=== PATIENT | female | born 1990 | race Caucasian/White ===

== ENCOUNTER 2016-07-05 11:03 | Emergency (ER) | payer MEDICAID, OTHER ==
[2016-07-05] MEDS ORDERED: TETRACAINE HCL 0.5% OPH SOLN 2 ML OS ONE (11:34)
[2016-07-05] MEDS ORDERED: DIPH/PERTUSS(ACELL)/TETANUS VAC/PF 0.5 ML SYR (>=10YO) IM ONE (11:35)
--- NOTE | 2016-07-05 11:36 | ER Document Report ---
ED Medical Screen (RME) - General Chief Complaint: Eye Injury Stated Complaint: FALL/LEFT EYE INJURY Time seen by provider: 11:34 Mode of Arrival: Ambulatory Information source: Patient Notes: 26-year-old female fell in the shower and hit her left eye and orbit on the faucet. Increased pain when she moves her eyeball and increased bruising and swelling to superior inferior orbit. Tetanus is not current. She has abrasion above the left eyebrow. TRAVEL OUTSIDE OF THE [place] IN LAST 30 DAYS: No - Related Data Allergies/Adverse Reactions: No Known Allergies Allergy (Verified 07/05/16 11:18) Home Medications: Current Home Medications No Home Medications 07/05/16 [History] Past Medical History Renal/ Medical History: Denies: Hx Peritoneal Dialysis Skin Medical History: Denies Hx MRSA Past Surgical History: Reports: Hx Breast Surgery - Immunizations Hx Diphtheria, Pertussis, Tetanus Vaccination: Yes Physical Exam - Vital signs Vitals: Temp Pulse Resp BP Pulse Ox 98.5 F 77 16 116/76 100 07/05/16 11:19 07/05/16 11:19 07/05/16 11:19 07/05/16 11:19 07/05/16 11:19 Course - Vital Signs Vital signs: Temp Pulse Resp BP Pulse Ox 98.5 F 77 16 116/76 100 07/05/16 11:19 07/05/16 11:19 07/05/16 11:19 07/05/16 11:19 07/05/16 11:19
--- NOTE | 2016-07-05 13:39 | ER Document Report ---
ED Eye Complaint - General Chief Complaint: Eye Injury Stated Complaint: FALL/LEFT EYE INJURY Time seen by provider: 13:35 Mode of Arrival: Ambulatory TRAVEL OUTSIDE OF THE [place] IN LAST 30 DAYS: No - Related Data Allergies/Adverse Reactions: No Known Allergies Allergy (Verified 07/05/16 11:18) Home Medications: Current Home Medications No Home Medications 07/05/16 [History] Past Medical History - General Information source: Patient - Social History Family History: Reviewed & Not Pertinent Patient has suicidal ideation: No Patient has homicidal ideation: No Renal/ Medical History: Denies: Hx Peritoneal Dialysis Skin Medical History: Denies Hx MRSA Past Surgical History: Reports: Hx Breast Surgery - Immunizations Hx Diphtheria, Pertussis, Tetanus Vaccination: Yes Physical Exam - Vital signs Vitals: Temp Pulse Resp BP Pulse Ox 98.5 F 77 16 116/76 100 07/05/16 11:19 07/05/16 11:19 07/05/16 11:19 07/05/16 11:19 07/05/16 11:19 - HEENT Visual acuity- Right eye: 20/25 Visual acuity- Left eye: 20/25 Visual acuity- Both eyes: 20/25 Corrective lenses worn: No Course - Re-evaluation Re-evalutation: 07/05/16 13:35 The patient is wanting to leave so this was brought to my attention, the CT scan shows orbital floor fracture. consult dr willard who states to 07/05/16 13:37 - Vital Signs Vital signs: Temp Pulse Resp BP Pulse Ox 98.5 F 77 16 116/76 100 07/05/16 11:19 07/05/16 11:19 07/05/16 11:19 07/05/16 11:19 07/05/16 11:19
[2016-07-05] MEDS ORDERED: CEPHALEXIN 500 MG CAPSULE PO ONE (13:52)
--- NOTE | 2016-07-05 13:52 | ER Document Report ---
ED Eye Complaint - General Chief Complaint: Eye Injury Stated Complaint: FALL/LEFT EYE INJURY Time seen by provider: 13:47 Mode of Arrival: Ambulatory Information source: Patient Notes: 26 yo female slipped in shower and hit left orbit on faucet on tuesday. Tetanus is not current. No visual problems. TRAVEL OUTSIDE OF THE [place] IN LAST 30 DAYS: No - Related Data Allergies/Adverse Reactions: No Known Allergies Allergy (Verified 07/05/16 11:18) Past Medical History - General Information source: Patient - Social History Smoking Status: Unknown if Ever Smoked Frequency of alcohol use: None Drug Abuse: None Lives with: Family Family History: Reviewed & Not Pertinent Patient has suicidal ideation: No Patient has homicidal ideation: No - Medical History Medical History: Negative Renal/ Medical History: Denies: Hx Peritoneal Dialysis Skin Medical History: Denies Hx MRSA Past Surgical History: Reports: Hx Breast Surgery - Immunizations Hx Diphtheria, Pertussis, Tetanus Vaccination: Yes Review of Systems - Review of Systems Constitutional: No symptoms reported EENT: See HPI Cardiovascular: No symptoms reported Respiratory: No symptoms reported Gastrointestinal: No symptoms reported Genitourinary: No symptoms reported Female Genitourinary: No symptoms reported Musculoskeletal: No symptoms reported Skin: No symptoms reported Hematologic/Lymphatic: No symptoms reported Neurological/Psychological: No symptoms reported Physical Exam - Vital signs Vitals: Temp Pulse Resp BP Pulse Ox 98.5 F 77 16 116/76 100 07/05/16 11:19 07/05/16 11:19 07/05/16 11:19 07/05/16 11:19 07/05/16 11:19 Interpretation: Normal - General General appearance: Appears well, Alert - HEENT Head: Normocephalic, Ecchymosis - superior and inferior orbits, Tenderness - soft tissue, superficial abrasions superior orbit. No: Payne's sign, Racoon's eyes Eyes: Normal, Periorbital ecchymosis, Periorbital edema - mild Conjunctiva: Other - lateral subconjunctival hemorrhage. No: Purulent discharge Extraocular movements intact: Yes Pupils: PERRL Visual acuity- Right eye: 20/25 Visual acuity- Left eye: 20/25 Visual acuity- Both eyes: 20/25 Corrective lenses worn: No Neck: Supple - Respiratory Respiratory status: No respiratory distress Chest status: Nontender Breath sounds: Normal Chest palpation: Normal - Cardiovascular Rhythm: Regular Heart sounds: Normal auscultation Murmur: No - Extremities General upper extremity: Normal inspection, Nontender, Normal color, Normal ROM , Normal temperature General lower extremity: Normal inspection, Nontender, Normal color, Normal ROM , Normal temperature, Normal weight bearing. No: Zahida's sign - Neurological Neuro grossly intact: Yes Cognition: Normal Orientation: AAOx4 Annmarie Coma Scale Eye Opening: Spontaneous Annmarie Coma Scale Verbal: Oriented Annmarie Coma Scale Motor: Obeys Commands Annmarie Coma Scale Total: 15 Speech: Normal Motor strength normal: LUE, RUE, LLE, RLE Sensory: Normal - Psychological Associated symptoms: Normal affect, Normal mood - Skin Skin Temperature: Warm Skin Moisture: Dry Skin Color: Normal Course - Re-evaluation Re-evalutation: 07/05/16 13:47 The patient is wanting to leave so this was brought to my attention, the CT scan shows orbital floor fracture. Consult with Dr. HUERTA and , he states to place the patient on Keflex, he will see her in the office at 8 AM tomorrow morning July 06 and ice and no nose blowing. Visual acuity was 20/25 there is no visual change at this time. No hyphema. 07/05/16 13:56 - Vital Signs Vital signs: Temp Pulse Resp BP Pulse Ox 98.5 F 55 L 16 109/71 100 07/05/16 11:19 07/05/16 13:58 07/05/16 13:58 07/05/16 13:58 07/05/16 13:58 Discharge - Discharge Clinical Impression: left orbital floor fracture, Ecchymosis, left medial orbit fracture Condition: Good Disposition: HOME, SELF-CARE Instructions: Eye Socket Trauma ([facility]), Facial Bone Fracture, Displaced ([facility]), Cephalexin ([facility]), Oral Narcotic Medication ([facility]) Additional Instructions: ice do not blow nose if your vision changes then return immediately to the ER otherwise see dr. Brooks tomorrow morning July 06, 2016 at 8 am in his office take the antibiotic prescribed. Please complete the patient satisfaction survey if you get one, and return it.. If you do not receive a survey, then you can go to the [facility] website, [email or web address] and place your comments about your very good care. Thank you very much. It was a pleasure being your medical provider today. Prescriptions: Hydrocodone Bit/Acetaminophen [Hydrocodon-Acetaminophen 5-325] 1 each PO Q4HP PRN #15 tablet PRN Reason: Cephalexin Monohydrate [Keflex 500 mg Capsule] 500 mg PO QID #28 capsule Forms: Return to Work Referrals: HAYLIE BROOKS MD [ACTIVE STAFF] - Follow up tomorrow (8 am)
[2016-07-05 13:58] VITALS: BP 109/71
== END 2016-07-05 14:04 | disposition home or self-care (01) ==
LOC: ER 11:03
DX: S02.32XA Fracture of orbital floor, left side, initial encounter for closed fracture (principal); W18.2XXA Fall in (into) shower or empty bathtub, initial encounter; Y93.89 Activity, other specified
CPT/HCPCS: 99283; 90471; 70486; 90715; J3490

== ENCOUNTER 2016-09-24 23:58 | Emergency (ER) | payer OTHER, MEDICAID ==
[2016-09-25] MEDS ORDERED: ACETAMINOPHEN 325 MG TABLET PO ONE (02:08)
[2016-09-25] MEDS ORDERED: DIAZEPAM INJ 10 MG/2 ML DISP.SYRIN IM ONE (02:58)
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
[2016-09-25 04:12] VITALS: BP 109/88
== END 2016-09-25 04:08 | disposition home or self-care (01) ==
LOC: ER 23:58
DX: S39.012A Strain of muscle, fascia and tendon of lower back, initial encounter (principal); V89.2XXA Person injured in unspecified motor-vehicle accident, traffic, initial encounter
CPT/HCPCS: 99283; 96372; 72110; J3360